=== PATIENT | male | born 1990 | race African-American/Black ===

== ENCOUNTER 2017-12-21 08:48 | Emergency (ER) | payer SELFPAY ==
[~2017-12-21] VITALS: Ht 188 cm; Wt 107.0 kg
[2017-12-21 09:13] VITALS: BP 143/87; Ht 188 cm; Wt 107.0 kg
== END 2017-12-21 09:47 | disposition home or self-care (01) ==
LOC: ED 08:48
DX: R05 Cough (principal); H92.02 Otalgia, left ear; J45.909 Unspecified asthma, uncomplicated